=== PATIENT | male | born 1935 | race Two or more races ===

== ENCOUNTER 2016-09-03 23:21 | Emergency (ER) | payer OTHER ==
[~2016-09-03] VITALS: Ht 167.6 cm; Wt 95.6 kg
[~2016-09-03 23:21] MED LIST: ADULT LOW DOSE81 M1 PO; COLCRYS0.6 MG PO; INDOCIN50 MG PO; LOSARTAN-HCTZ1 EAC1 PO; NITROSTAT0.4 MG SL; NORCO 5/3251 TABLET PO; NORVASC5 MG PO; Q-SORB CO Q-10100 MG PO; VITAMIN C1000 M1 PO; VITAMIN D31000 UNIT PO; VITAMIN E400 UNIT PO
[2016-09-04 00:16] LABS: HEMATOCRIT 43.8 % (38.0-50.0); MCH 29.5 PG (29.0-34.0); MCHC 33.6 G/DL (30.0-36.0); MEAN PLAT.VOLUME 10.8 uM^3 (9.0-12.4); PLATELET COUNT 188 K/uL (156-360); RBC DIS.WIDTH-CV 13.4 % (11.8-14.6); RBC DIS.WIDTH-SD 43.5 % (39-53); RED BLOOD COUNT 4.98 M/uL (4.00-5.50); WHITE BLOOD COUNT 8.1 K/uL (4.1-10.2)
[2016-09-04 00:23] VITALS: BP 157/92
[2016-09-04 00:31] LABS: CHLORIDE 105 mEq/L (99-109); POTASSIUM 3.8 mEq/L (3.7-5.4); SODIUM 140 mEq/L (136-147)
[2016-09-04 00:32] LABS: GLUCOSE 118 mg/dL (70-99)
[2016-09-04 00:34] LABS: ANION GAP 13 MEQ/L (2-14)
[2016-09-04 00:36] LABS: GFR ESTIMATE (CALCULATED) 56 mL/min/
[2016-09-04 00:37] LABS: UREA NITROGEN (BUN) 18 mg/dL (9-23)
[2016-09-04 00:41] LABS: TROP-I INTERPRETATION NEGATIVE; TROPONIN-I < 0.01 ng/mL (0.0-0.30)
== END 2016-09-04 02:21 | disposition left against medical advice (07) ==
LOC: EME 23:21
DX: R07.9 Chest pain, unspecified (principal); I10 Essential (primary) hypertension; E78.5 Hyperlipidemia, unspecified
CPT/HCPCS: 71020; 80048; 84484; 85027; 93005; 99281; 99284